=== PATIENT | female | born 1940 | race Caucasian/White ===

== ENCOUNTER → 2017-03-02 | Day surgery (SDC) | payer OTHER ==
[~2017-03-02] VITALS: Ht 160 cm; Wt 63.9 kg
[~2017-03-02] MED LIST: ACETAMINOPHEN 1000 MG/100 ML 100 ML IV ONE; ASCO100016 PO; ASPI81CH CHEW; CALC1TAB87 PO; CHLORHEXIDINE GLUCONATE 2 % 1 PACK (2 CLOTHS) TOPICAL PRN; CHOL5000 PO; CLINDAMYCIN 600 MG/NS 100 ML IV ONE; DO NOT ADM ANY ANTICOAGULANT DRUGS PRN; ESTR0.5T PO; ESTROGENS CONJUGATED VAG CREA 15 APPL/30 GM TUBE ONE; FLUORESCEIN SOD 10% SOLN 500 MG/5 ML AMP ONE; GABA100C4 PO; GLUC100017 PO; INSULIN HUMAN REGULAR 1,000 UNITS/10 ML VIAL SQ PRN; KETOROLAC TROMETHAMINE 30 MG/ML (IVP) VIAL IV PUSH ONE; KETOROLAC TROMETHAMINE 60 MG/2 ML (IM) VIAL IM PRN; KRIL1CAP9 PO; LACTATED RINGER'S 1000 ML INJ 1,000 ML IV ONE; LACTATED RINGER'S 1000 ML IV PRN; LEVO.1 PO; LIDOCAINE 1%/EPINEPHrine 1:100,000 SOLN 50 ML VIAL ONE; LIDOCAINE HCL 1% PF 5 ML AMPULE OTHER ONE; LISI10TA3 PO; METHYLENE BLUE 10 MG/ML VIAL OTHER ONE; METOPROLOL TARTRATE 25 MG TAB PO PRN; METRONIDAZOLE 500 MG/100 ML ISONTONIC SOLN IV ONE; MULTTAB25 PO; ONDANSETRON HCL 4 MG/2 ML VIAL IV PRN; ONDANSETRON HCL 4 MG/2 ML VIAL IV PUSH ONE; POVIDONE IODINE 5% (ANTISEPSIS KIT) 4 APPLICATIONS EACH NARE PRN; PROPOFOL 200 MG/20 ML AMP IV ONE; SODIUM CHLORID 0.9% 500 ML IV PRN; SODIUM CHLORIDE 0.9% INJ 100 ML ONE; VITA80003 PO; VITATAB11 PO; ePHEDrine/NS 25 MG/5 ML SYR IV ONE; traMADol HCL 50 MG TAB PO PRN
--- NOTE | 2017-03-02 07:59 | MH ---
cc: QUINN OCAMPO MD DATE OF ADMISSION: 03/02/2017 DATE OF : 1940 REASON FOR ADMISSION Anterior and posterior repair. HISTORY OF PRESENT ILLNESS The patient is a 76-year-old white female, 3, para 3, who has had issues with pelvic prolapse for several years. She has been using a pessary but at this point wants to proceed with definitive repair of an anterior and posterior wall defect. PAST MEDICAL HISTORY 1. Hypothyroidism. 2. Hypertension. ALLERGIES 1. PENICILLIN. 2. SULFA. MEDICATIONS 1. Aspirin 81 mg q. day. 2. Synthroid 100 mcg q. day. 3. Lisinopril 10 mg q. day. 4. Gabapentin 100 mg every other day. 5. Estradiol 0.5 mg q. day. 6. Progesterone 10 days a month. PAST SURGICAL HISTORY Lumpectomy. 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 OB HISTORY Three vaginal deliveries. SOCIAL HISTORY . Good social support. 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 REVIEW OF SYSTEMS As above. No chest pain, orthopnea, PND. No nausea, vomiting, fever or chills. No vaginal bleeding or discharge. PHYSICAL EXAMINATION VITAL SIGNS: She is afebrile. Vital signs stable. Height 5.3, weight 135, BMI 24. Blood pressure 140/60. GENERAL: Patient is alert and oriented, in no acute distress. No sign of cognitive dysfunction or depression. HEENT: Within normal limits. NECK: Supple. No JVD. CHEST: Clear. HEART: Regular rate and rhythm. ABDOMEN: Soft, nontender. No hepatosplenomegaly. No CVA tenderness. PELVIC: POP-Q score: Aa is zero; Ap is -1; point C is -4; genital hiatus is 5; perineal body is 4; total vaginal length is 10. Without pessary in place had postvoid residual that was 300 cc. Further exam under anesthesia. EXTREMITIES: Normal. SKIN: Without rashes. NEUROLOGIC: Nonfocal. No DVT signs. ASSESSMENT/PLAN Patient with stage II anterior and posterior compartment prolapse. The patient and I discussed options for management and treatment. At this point she is no longer happy with the pessary and wants to proceed with surgical correction. She is aware of the risks, benefits and alternatives of planned procedure including damage to surrounding organs, bleeding, infection, failure of repair, pain with intercourse, damage to bladder, bowel or ureters. Also issues with de jeanna incontinence or urinary retention. Patient has made an informed choice to proceed. We anticipate outpatient procedure. Will use DVT prophylaxis with sequential compression device, antibiotic prophylaxis with Flagyl and Cleocin in light of her penicillin allergy. Anticipate outpatient procedure. MD CHANDAN Le/BARB /10:11 AM /7:47 AM
--- NOTE | 2017-03-02 07:59 | MH ---
cc: QUINN OCAMPO MD DATE OF ADMISSION: 03/02/2017 DATE OF : 1940 REASON FOR ADMISSION Anterior and posterior repair. HISTORY OF PRESENT ILLNESS The patient is a 76-year-old white female, 3, para 3, who has had issues with pelvic prolapse for several years. She has been using a pessary but at this point wants to proceed with definitive repair of an anterior and posterior wall defect. PAST MEDICAL HISTORY 1. Hypothyroidism. 2. Hypertension. ALLERGIES 1. PENICILLIN. 2. SULFA. MEDICATIONS 1. Aspirin 81 mg q. day. 2. Synthroid 100 mcg q. day. 3. Lisinopril 10 mg q. day. 4. Gabapentin 100 mg every other day. 5. Estradiol 0.5 mg q. day. 6. Progesterone 10 days a month. PAST SURGICAL HISTORY Lumpectomy. 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 OB HISTORY Three vaginal deliveries. SOCIAL HISTORY . Good social support. 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 REVIEW OF SYSTEMS As above. No chest pain, orthopnea, PND. No nausea, vomiting, fever or chills. No vaginal bleeding or discharge. PHYSICAL EXAMINATION VITAL SIGNS: She is afebrile. Vital signs stable. Height 5.3, weight 135, BMI 24. Blood pressure 140/60. GENERAL: Patient is alert and oriented, in no acute distress. No sign of cognitive dysfunction or depression. HEENT: Within normal limits. NECK: Supple. No JVD. CHEST: Clear. HEART: Regular rate and rhythm. ABDOMEN: Soft, nontender. No hepatosplenomegaly. No CVA tenderness. PELVIC: POP-Q score: Aa is zero; Ap is -1; point C is -4; genital hiatus is 5; perineal body is 4; total vaginal length is 10. Without pessary in place had postvoid residual that was 300 cc. Further exam under anesthesia. EXTREMITIES: Normal. SKIN: Without rashes. NEUROLOGIC: Nonfocal. No DVT signs. ASSESSMENT/PLAN Patient with stage II anterior and posterior compartment prolapse. The patient and I discussed options for management and treatment. At this point she is no longer happy with the pessary and wants to proceed with surgical correction. She is aware of the risks, benefits and alternatives of planned procedure including damage to surrounding organs, bleeding, infection, failure of repair, pain with intercourse, damage to bladder, bowel or ureters. Also issues with de jeanna incontinence or urinary retention. Patient has made an informed choice to proceed. We anticipate outpatient procedure. Will use DVT prophylaxis with sequential compression device, antibiotic prophylaxis with Flagyl and Cleocin in light of her penicillin allergy. Anticipate outpatient procedure. MD CHANDAN Le/BARB /10:11 AM /7:47 AM
--- NOTE | 2017-03-02 07:59 | MH ---
cc: QUINN OCAMPO MD DATE OF ADMISSION: 03/02/2017 DATE OF : 1940 REASON FOR ADMISSION Anterior and posterior repair. HISTORY OF PRESENT ILLNESS The patient is a 76-year-old white female, 3, para 3, who has had issues with pelvic prolapse for several years. She has been using a pessary but at this point wants to proceed with definitive repair of an anterior and posterior wall defect. PAST MEDICAL HISTORY 1. Hypothyroidism. 2. Hypertension. ALLERGIES 1. PENICILLIN. 2. SULFA. MEDICATIONS 1. Aspirin 81 mg q. day. 2. Synthroid 100 mcg q. day. 3. Lisinopril 10 mg q. day. 4. Gabapentin 100 mg every other day. 5. Estradiol 0.5 mg q. day. 6. Progesterone 10 days a month. PAST SURGICAL HISTORY Lumpectomy. 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 OB HISTORY Three vaginal deliveries. SOCIAL HISTORY . Good social support. 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 REVIEW OF SYSTEMS As above. No chest pain, orthopnea, PND. No nausea, vomiting, fever or chills. No vaginal bleeding or discharge. PHYSICAL EXAMINATION VITAL SIGNS: She is afebrile. Vital signs stable. Height 5.3, weight 135, BMI 24. Blood pressure 140/60. GENERAL: Patient is alert and oriented, in no acute distress. No sign of cognitive dysfunction or depression. HEENT: Within normal limits. NECK: Supple. No JVD. CHEST: Clear. HEART: Regular rate and rhythm. ABDOMEN: Soft, nontender. No hepatosplenomegaly. No CVA tenderness. PELVIC: POP-Q score: Aa is zero; Ap is -1; point C is -4; genital hiatus is 5; perineal body is 4; total vaginal length is 10. Without pessary in place had postvoid residual that was 300 cc. Further exam under anesthesia. EXTREMITIES: Normal. SKIN: Without rashes. NEUROLOGIC: Nonfocal. No DVT signs. ASSESSMENT/PLAN Patient with stage II anterior and posterior compartment prolapse. The patient and I discussed options for management and treatment. At this point she is no longer happy with the pessary and wants to proceed with surgical correction. She is aware of the risks, benefits and alternatives of planned procedure including damage to surrounding organs, bleeding, infection, failure of repair, pain with intercourse, damage to bladder, bowel or ureters. Also issues with de jeanna incontinence or urinary retention. Patient has made an informed choice to proceed. We anticipate outpatient procedure. Will use DVT prophylaxis with sequential compression device, antibiotic prophylaxis with Flagyl and Cleocin in light of her penicillin allergy. Anticipate outpatient procedure. MD CHANDAN Le/BARB /10:11 AM /7:47 AM
--- NOTE | 2017-03-02 11:18 | MP ---
cc: QUINN OCAMPO MD DATE OF SURGERY 03/02/2017 PREOPERATIVE DIAGNOSES Anterior posterior compartment defect. POSTOPERATIVE DIAGNOSES 1. Midline cystocele code N81.11 2. Rectocele code N81.6 3. Uterine prolapse code N81.2 4. External sphincter defect code K62.81 PROCEDURE 1. Anterior posterior repair with enterocele, CPT code 29139 2. Colposuspension/hysteropexy CPT code 82904 3. External sphincteroplasty end-to-end technique, CPT code 90430 4. Diagnostic cystoscopy code 49177 SURGEON Quinn Ocampo MD ANESTHESIA General endotracheal BLOOD LOSS 100 cc URINE OUTPUT 400 cc prior to the medical case worker [place] staff x2 FLUIDS 1000 cc crystalloid FINDINGS External genitalia normal, POP-Q score: Aa is +3, Ap is +1. Point C is +3. Total vaginal length is 10. Genital hiatus is 8. Perineal body is 2. External sphincter defect from 10 o'clock to 2 o'clock position. The rectal lumen unremarkable pre and post repair. Following repair POP-Q score: Aa is -3, Ap is -3. Point C is -8. Total vaginal length is 10. Genital hiatus is 5. Perineal body is 5. Cystoscopy after repair shows normal trigone, good coaptation of urethra. Ureteral orifices patent x2. Dome and base of bladder normal. SPECIMENS Vaginal mucosa COMPLICATIONS None DISPOSITION To the recover room stable. COUNTS Needle and sponge counts correct. DRAINS Warren catheter ANTIBIOTIC PROPHYLAXIS 1. Cleocin 600 mg 2. Flagyl 500 mg IV DVT PROPHYLAXIS Sequential compression device. TIME OUT PROCEDURE Per protocol SUMMARY OF INDICATIONS FOR THE PROCEDURE Patient with symptomatic pelvic organ prolapse. She has been using a pessary and in the office she had what appear to be mostly stage II pelvic organ prolapse. She had decided to move forward with definitive surgical correction and had wished to maintain vaginal function. The patient was taken to the operating room theater, identified, prepped and draped in a fashion appropriate for the planned procedure. She was in the dorsal lithotomy position with careful attention paid to placement of legs in the stirrups to avoid undue stress to sensitive neurovascular structures. Above findings noted. Neurovascular integrity documented. Pessary was removed and with removal of pessary, we noted that with the relaxation associated with anesthesia. She had significantly more prolapse than we had appreciated in the office. She has least stage IV uterine prolapse and three anterior and posterior compartment. The bladder was back-filled with methylene blue solution. We then infiltrated the anterior mucosa with epinephrine/lidocaine solution, made a midline incision from the cervicovesical reflection, took this up to approximately 1 cm from the meatus, dissected the bladder from the vaginal mucosa and the anterior portion of the uterus. There is no spill of methylene blue with dissection. We then performed anterior repair in standard fashion without complication. Prior to trimming the mucosa, we performed cystoscopy, above findings noted. Ureteral orifices patent x2 by visualizing yellow urine which was dyed with fluorescein which she had received IV 1 cc. Vaginal cuff was trimmed and the mucosa was closed with a running Vicryl suture. Hemostatic matrix was used to obviate the need for packing. Still remains significant posterior and central defect. We made a midline incision from the perineal body to the cervix, and reflected the rectal tissues from the mucosa without complication. The ischial spine on the right was identified and then a Prolene suture was placed two fingerbreadths medial. Then this was attached to the body of the cervix. Posterior repair was performed in standard fashion. Enterocele was closed with delayed absorbable suture. The vaginal mucosa was trimmed. The mucosa was closed approximately three-quarters of the way down the vaginal vault. We then cinched down the suspension suture which gave us good elevation of the uterus with some minor deviation to the right. The remainder of the posterior repair was performed without complication. Anterior and posterior suture lines were intact and hemostatic. Rectal exam confirmed there was no damage to the rectum. There was significant diminution of the external sphincter and the perineal body was essentially less than 2 cm. The end-to-end sphincteroplasty was performed in standard fashion with delayed absorbable suture without complication. The skin was closed with 3-0 Vicryl suture. At the conclusion of the procedure, the above findings noted. Exam is as above. He tolerated the procedure well and went to the recovery room in stable condition. She will have a voiding trial and if she meets criteria, can be discharged from same day surgery. MD CHANDAN Le/ADRY /10:43 AM /10:59 AM
--- NOTE | 2017-03-02 11:18 | MP ---
cc: QUINN OCAMPO MD DATE OF SURGERY 03/02/2017 PREOPERATIVE DIAGNOSES Anterior posterior compartment defect. POSTOPERATIVE DIAGNOSES 1. Midline cystocele code N81.11 2. Rectocele code N81.6 3. Uterine prolapse code N81.2 4. External sphincter defect code K62.81 PROCEDURE 1. Anterior posterior repair with enterocele, CPT code 11364 2. Colposuspension/hysteropexy CPT code 99928 3. External sphincteroplasty end-to-end technique, CPT code 43637 4. Diagnostic cystoscopy code 27277 SURGEON Quinn Ocampo MD ANESTHESIA General endotracheal BLOOD LOSS 100 cc URINE OUTPUT 400 cc prior to the skilled nursing case manager [place] staff x2 FLUIDS 1000 cc crystalloid FINDINGS External genitalia normal, POP-Q score: Aa is +3, Ap is +1. Point C is +3. Total vaginal length is 10. Genital hiatus is 8. Perineal body is 2. External sphincter defect from 10 o'clock to 2 o'clock position. The rectal lumen unremarkable pre and post repair. Following repair POP-Q score: Aa is -3, Ap is -3. Point C is -8. Total vaginal length is 10. Genital hiatus is 5. Perineal body is 5. Cystoscopy after repair shows normal trigone, good coaptation of urethra. Ureteral orifices patent x2. Dome and base of bladder normal. SPECIMENS Vaginal mucosa COMPLICATIONS None DISPOSITION To the recover room stable. COUNTS Needle and sponge counts correct. DRAINS Warren catheter ANTIBIOTIC PROPHYLAXIS 1. Cleocin 600 mg 2. Flagyl 500 mg IV DVT PROPHYLAXIS Sequential compression device. TIME OUT PROCEDURE Per protocol SUMMARY OF INDICATIONS FOR THE PROCEDURE Patient with symptomatic pelvic organ prolapse. She has been using a pessary and in the office she had what appear to be mostly stage II pelvic organ prolapse. She had decided to move forward with definitive surgical correction and had wished to maintain vaginal function. The patient was taken to the operating room theater, identified, prepped and draped in a fashion appropriate for the planned procedure. She was in the dorsal lithotomy position with careful attention paid to placement of legs in the stirrups to avoid undue stress to sensitive neurovascular structures. Above findings noted. Neurovascular integrity documented. Pessary was removed and with removal of pessary, we noted that with the relaxation associated with anesthesia. She had significantly more prolapse than we had appreciated in the office. She has least stage IV uterine prolapse and three anterior and posterior compartment. The bladder was back-filled with methylene blue solution. We then infiltrated the anterior mucosa with epinephrine/lidocaine solution, made a midline incision from the cervicovesical reflection, took this up to approximately 1 cm from the meatus, dissected the bladder from the vaginal mucosa and the anterior portion of the uterus. There is no spill of methylene blue with dissection. We then performed anterior repair in standard fashion without complication. Prior to trimming the mucosa, we performed cystoscopy, above findings noted. Ureteral orifices patent x2 by visualizing yellow urine which was dyed with fluorescein which she had received IV 1 cc. Vaginal cuff was trimmed and the mucosa was closed with a running Vicryl suture. Hemostatic matrix was used to obviate the need for packing. Still remains significant posterior and central defect. We made a midline incision from the perineal body to the cervix, and reflected the rectal tissues from the mucosa without complication. The ischial spine on the right was identified and then a Prolene suture was placed two fingerbreadths medial. Then this was attached to the body of the cervix. Posterior repair was performed in standard fashion. Enterocele was closed with delayed absorbable suture. The vaginal mucosa was trimmed. The mucosa was closed approximately three-quarters of the way down the vaginal vault. We then cinched down the suspension suture which gave us good elevation of the uterus with some minor deviation to the right. The remainder of the posterior repair was performed without complication. Anterior and posterior suture lines were intact and hemostatic. Rectal exam confirmed there was no damage to the rectum. There was significant diminution of the external sphincter and the perineal body was essentially less than 2 cm. The end-to-end sphincteroplasty was performed in standard fashion with delayed absorbable suture without complication. The skin was closed with 3-0 Vicryl suture. At the conclusion of the procedure, the above findings noted. Exam is as above. He tolerated the procedure well and went to the recovery room in stable condition. She will have a voiding trial and if she meets criteria, can be discharged from same day surgery. MD CHANDAN Le/ADRY /10:43 AM /10:59 AM
--- NOTE | 2017-03-02 11:18 | MP ---
cc: QUINN OCAMPO MD DATE OF SURGERY 03/02/2017 PREOPERATIVE DIAGNOSES Anterior posterior compartment defect. POSTOPERATIVE DIAGNOSES 1. Midline cystocele code N81.11 2. Rectocele code N81.6 3. Uterine prolapse code N81.2 4. External sphincter defect code K62.81 PROCEDURE 1. Anterior posterior repair with enterocele, CPT code 10890 2. Colposuspension/hysteropexy CPT code 14181 3. External sphincteroplasty end-to-end technique, CPT code 48372 4. Diagnostic cystoscopy code 71018 SURGEON Quinn Ocampo MD ANESTHESIA General endotracheal BLOOD LOSS 100 cc URINE OUTPUT 400 cc prior to the telehealth case manager [place] staff x2 FLUIDS 1000 cc crystalloid FINDINGS External genitalia normal, POP-Q score: Aa is +3, Ap is +1. Point C is +3. Total vaginal length is 10. Genital hiatus is 8. Perineal body is 2. External sphincter defect from 10 o'clock to 2 o'clock position. The rectal lumen unremarkable pre and post repair. Following repair POP-Q score: Aa is -3, Ap is -3. Point C is -8. Total vaginal length is 10. Genital hiatus is 5. Perineal body is 5. Cystoscopy after repair shows normal trigone, good coaptation of urethra. Ureteral orifices patent x2. Dome and base of bladder normal. SPECIMENS Vaginal mucosa COMPLICATIONS None DISPOSITION To the recover room stable. COUNTS Needle and sponge counts correct. DRAINS Warren catheter ANTIBIOTIC PROPHYLAXIS 1. Cleocin 600 mg 2. Flagyl 500 mg IV DVT PROPHYLAXIS Sequential compression device. TIME OUT PROCEDURE Per protocol SUMMARY OF INDICATIONS FOR THE PROCEDURE Patient with symptomatic pelvic organ prolapse. She has been using a pessary and in the office she had what appear to be mostly stage II pelvic organ prolapse. She had decided to move forward with definitive surgical correction and had wished to maintain vaginal function. The patient was taken to the operating room theater, identified, prepped and draped in a fashion appropriate for the planned procedure. She was in the dorsal lithotomy position with careful attention paid to placement of legs in the stirrups to avoid undue stress to sensitive neurovascular structures. Above findings noted. Neurovascular integrity documented. Pessary was removed and with removal of pessary, we noted that with the relaxation associated with anesthesia. She had significantly more prolapse than we had appreciated in the office. She has least stage IV uterine prolapse and three anterior and posterior compartment. The bladder was back-filled with methylene blue solution. We then infiltrated the anterior mucosa with epinephrine/lidocaine solution, made a midline incision from the cervicovesical reflection, took this up to approximately 1 cm from the meatus, dissected the bladder from the vaginal mucosa and the anterior portion of the uterus. There is no spill of methylene blue with dissection. We then performed anterior repair in standard fashion without complication. Prior to trimming the mucosa, we performed cystoscopy, above findings noted. Ureteral orifices patent x2 by visualizing yellow urine which was dyed with fluorescein which she had received IV 1 cc. Vaginal cuff was trimmed and the mucosa was closed with a running Vicryl suture. Hemostatic matrix was used to obviate the need for packing. Still remains significant posterior and central defect. We made a midline incision from the perineal body to the cervix, and reflected the rectal tissues from the mucosa without complication. The ischial spine on the right was identified and then a Prolene suture was placed two fingerbreadths medial. Then this was attached to the body of the cervix. Posterior repair was performed in standard fashion. Enterocele was closed with delayed absorbable suture. The vaginal mucosa was trimmed. The mucosa was closed approximately three-quarters of the way down the vaginal vault. We then cinched down the suspension suture which gave us good elevation of the uterus with some minor deviation to the right. The remainder of the posterior repair was performed without complication. Anterior and posterior suture lines were intact and hemostatic. Rectal exam confirmed there was no damage to the rectum. There was significant diminution of the external sphincter and the perineal body was essentially less than 2 cm. The end-to-end sphincteroplasty was performed in standard fashion with delayed absorbable suture without complication. The skin was closed with 3-0 Vicryl suture. At the conclusion of the procedure, the above findings noted. Exam is as above. He tolerated the procedure well and went to the recovery room in stable condition. She will have a voiding trial and if she meets criteria, can be discharged from same day surgery. MD CHANDAN Le/ADRY /10:43 AM /10:59 AM
[2017-03-02 12:35] VITALS: BP 157/67; PULSE 62; RESP 16; TEMP 98.2; O2SAT 100
--- NOTE | 2017-03-02 21:09 | EKG ---
Date Performed: 03/02/2017 Time Performed: 06:51:32 PTAGE: 76 years EKG: Sinus rhythm NO PREVIOUS TRACING DOCTOR: Namrata Hood Interpretating Date/Time 03/02/2017 21:09:20
--- NOTE | 2017-03-02 21:09 | EKG ---
Date Performed: 03/02/2017 Time Performed: 06:51:32 PTAGE: 76 years EKG: Sinus rhythm NO PREVIOUS TRACING DOCTOR: Namrata Hood Interpretating Date/Time 03/02/2017 21:09:20
--- NOTE | 2017-03-02 21:09 | EKG ---
Date Performed: 03/02/2017 Time Performed: 06:51:32 PTAGE: 76 years EKG: Sinus rhythm NO PREVIOUS TRACING DOCTOR: Namrata Hood Interpretating Date/Time 03/02/2017 21:09:20
== END | disposition home or self-care (01) ==
LOC: HSDC 05:53
PROVIDERS: ATTEND Obstetrics & Gynecology Gynecology
DX: N81.4 Uterovaginal prolapse, unspecified (principal); N81.6 Rectocele; K62.81 Anal sphincter tear (healed) (nontraumatic) (old); I10 Essential (primary) hypertension; E03.9 Hypothyroidism, unspecified; Z79.82 Long term (current) use of aspirin; Z88.0 Allergy status to penicillin
CPT/HCPCS: 00840; 46750; 52000; 57265; 57282; 88302; 93005; J0131; J1885; J2405; J3010; J7120